=== PATIENT | male | born 1980 | race Caucasian/White ===

== ENCOUNTER 2024-07-08 11:29 | Emergency (ER) | payer MEDICAID ==
[~2024-07-08] VITALS: Ht 180.3 cm; Wt 100.0 kg
[2024-07-08 11:37] VITALS: TEMP 97.9
[2024-07-08 11:45] LABS: COVID AG,FIA SOURCE NASAL SWAB
[2024-07-08 12:23] LABS: SARS-COV2 (COVID) ANTIGEN,FIA Negative (Negative)
[2024-07-08 12:24] LABS: INFLUENZA TYPE A NEGATIVE FOR TYPE A (NEGATIVE); INFLUENZA TYPE B NEGATIVE FOR TYPE B (NEGATIVE)
[2024-07-08] MEDS ORDERED: FLUT16SP NASAL (12:57)
[2024-07-08] MEDS ORDERED: CORTSUSP AD (13:00)
[2024-07-08 13:01] VITALS: BP 111/68; PULSE 74; RESP 18; O2SAT 99
== END 2024-07-08 15:50 | disposition home or self-care (01) ==
LOC: EMS 11:29
DX: H60.91 Unspecified otitis externa, right ear (principal); Z20.822 Contact with and (suspected) exposure to COVID-19
CPT/HCPCS: 87804; 99283